=== PATIENT | male | born 2000 | race Caucasian/White ===

== ENCOUNTER 2018-05-14 16:44 | Emergency (ER) | payer OTHER ==
[~2018-05-14] VITALS: Ht 180.3 cm; Wt 59.0 kg
[2018-05-14 16:46] VITALS: Ht 180.3 cm; Wt 59.0 kg
[2018-05-14 17:53] LABS: BASOPHIL % 0.5 % (0-2); PLATELET COUNT 242 x10^3mcL (130-400)
[2018-05-14 18:09] LABS: CALCIUM 8.8 mg/dL (8.5-10.1); CARBON DIOXIDE 30.6 mmol/L (21-32); CHLORIDE SERUM 107 mmol/L (98-107); CREATININE SERUM 1.3 mg/dL (0.7-1.3); GFR1 > 60 mL/min; GLUCOSE SERUM 114 mg/dL (74-106); POTASSIUM SERUM 4.1 mmol/L (3.5-5.1); SODIUM SERUM 145 mmol/L (136-145)
[2018-05-14 18:13] LABS: ALKALINE PHOSPHATASE 73 U/L (46-116); ALT/SGPT 47 U/L (16-63); AMYLASE 46 U/L (25-115); AST/SGOT 36 U/L (15-37); BILIRUBIN TOTAL 0.79 mg/dL (0.20-1.00); LIPASE 76 IU/L (73-393); TOTAL PROTEIN, SERUM 6.9 g/dL (6.4-8.2)
[2018-05-14 19:03] LABS: UA SPECIFIC GRAVITY >=1.030 (1.005-1.035); microscopic required? YES; urine erythrocyte 3+ (NEGATIVE)
[2018-05-14 20:03] VITALS: BP 120/55
== END 2018-05-14 20:03 | disposition home or self-care (01) ==
LOC: ED 16:44
PROVIDERS: Emergency Medicine
DX: N23 Unspecified renal colic (principal)
CPT/HCPCS: J1885; J3010; J7030; Q0162

== ENCOUNTER 2018-05-14 21:55 | Emergency (ER) | payer OTHER ==
[~2018-05-14] VITALS: Ht 180.3 cm; Wt 60.3 kg
[2018-05-14 22:00] VITALS: Ht 180.3 cm; Wt 60.3 kg
[2018-05-14 22:59] LABS: AMPHETAMINE QUAL UR NONE DETECTED (See below)
[2018-05-15 00:31] VITALS: BP 123/74
== END 2018-05-15 00:31 | disposition home or self-care (01) ==
LOC: ED 21:55
PROVIDERS: Emergency Medicine
DX: N39.0 Urinary tract infection, site not specified (principal); F17.210 Nicotine dependence, cigarettes, uncomplicated
CPT/HCPCS: 99406; J1885

== ENCOUNTER 2018-06-18 03:42 | Emergency (ER) | payer OTHER ==
[2018-06-18 04:27] LABS: BASOPHIL % 0.5 % (0-2); PLATELET COUNT 245 x10^3mcL (130-400)
[2018-06-18 04:29] LABS: RED CELL DISTRIBUTION WIDTH 14.8 % (11.5-14.5)
[2018-06-18 04:34] LABS: CALCIUM 8.6 mg/dL (8.5-10.1); CARBON DIOXIDE 29.2 mmol/L (21-32); CHLORIDE SERUM 105 mmol/L (98-107); GFR1 > 60 mL/min; GLUCOSE SERUM 115 mg/dL (74-106); SODIUM SERUM 141 mmol/L (136-145)
[2018-06-18 04:40] LABS: ALBUMIN 3.6 g/dL (3.4-5.0); ALKALINE PHOSPHATASE 81 U/L (46-116); ALT/SGPT 33 U/L (16-63); AST/SGOT 25 U/L (15-37); BILIRUBIN TOTAL 0.3 mg/dL (0.20-1.00)
[2018-06-18 05:42] VITALS: BP 100/59
== END 2018-06-18 05:42 | disposition home or self-care (01) ==
LOC: ED 03:42
PROVIDERS: Emergency Medicine
DX: R10.31 Right lower quadrant pain (principal); Z87.442 Personal history of urinary calculi
CPT/HCPCS: J1885; J7030

== ENCOUNTER 2019-08-22 19:24 | Emergency (ER) | payer OTHER ==
[~2019-08-22] VITALS: Ht 175.3 cm; Wt 61.2 kg
[2019-08-22 19:31] VITALS: Ht 175.3 cm; Wt 61.2 kg
[2019-08-22 21:38] VITALS: BP 115/43
== END 2019-08-22 21:38 | disposition home or self-care (01) ==
LOC: ED 19:24
DX: G43.909 Migraine, unspecified, not intractable, without status migrainosus (principal); Z87.442 Personal history of urinary calculi
CPT/HCPCS: J1885; J2765; J7030

== ENCOUNTER 2020-05-24 19:15 | Emergency (ER) | payer OTHER ==
[~2020-05-24] VITALS: Ht 177.8 cm; Wt 64.4 kg
[2020-05-24 19:15] VITALS: Ht 177.8 cm; Wt 64.4 kg
[2020-05-24 23:00] VITALS: BP 110/68
== END 2020-05-24 23:00 | disposition home or self-care (01) ==
LOC: ED 19:15
DX: S20.311A Abrasion of right front wall of thorax, initial encounter (principal); G43.909 Migraine, unspecified, not intractable, without status migrainosus; Z87.442 Personal history of urinary calculi; V44.5XXA Car driver injured in collision with heavy transport vehicle or bus in traffic accident, initial encounter; Y93.I9 Activity, other involving external motion; Y92.413 State road as the place of occurrence of the external cause; Y99.8 Other external cause status
CPT/HCPCS: 99406; J7040

== ENCOUNTER 2020-06-02 03:21 | Emergency (ER) | payer OTHER ==
[~2020-06-02] VITALS: Ht 177.8 cm; Wt 63.5 kg
[2020-06-02 03:28] VITALS: Ht 177.8 cm; Wt 63.5 kg
[2020-06-02 03:39] LABS: BASOPHIL % 0.3 % (0-2); PLATELET COUNT 207 x10^3mcL (130-400); RED CELL DISTRIBUTION WIDTH 13.8 % (11.5-14.5)
[2020-06-02 04:18] LABS: CALCIUM 8.8 mg/dL (8.5-10.1); CARBON DIOXIDE 26.1 mmol/L (21-32); CHLORIDE SERUM 102 mmol/L (98-107); CREATININE SERUM 1.2 mg/dL (0.7-1.3); GFR1 > 60 mL/min; GLUCOSE SERUM 97 mg/dL (74-106); POTASSIUM SERUM 3.6 mmol/L (3.5-5.1); SODIUM SERUM 138 mmol/L (136-145)
[2020-06-02 04:22] LABS: ALBUMIN 4.2 g/dL (3.4-5.0); ALKALINE PHOSPHATASE 84 U/L (46-116); ALT/SGPT 33 U/L (16-63); AST/SGOT 36 U/L (15-37); TOTAL PROTEIN, SERUM 7.3 g/dL (6.4-8.2)
[2020-06-02 07:26] LABS: AMPHETAMINE QUAL UR NONE DETECTED (See below)
[2020-06-02 07:34] LABS: UA SPECIFIC GRAVITY >=1.030 (1.005-1.035); microscopic required? YES; urine erythrocyte NEGATIVE (NEGATIVE)
[2020-06-02 09:59] VITALS: BP 131/74
== END 2020-06-02 09:59 | disposition home or self-care (01) ==
LOC: ED 03:21
PROVIDERS: Emergency Medicine
DX: S60.221A Contusion of right hand, initial encounter (principal); S40.812A Abrasion of left upper arm, initial encounter; G43.909 Migraine, unspecified, not intractable, without status migrainosus; Z87.442 Personal history of urinary calculi; Y04.8XXA Assault by other bodily force, initial encounter; Y93.89 Activity, other specified; Y92.89 Other specified places as the place of occurrence of the external cause; Y99.8 Other external cause status
CPT/HCPCS: 90715; G0480; Q0092